=== PATIENT | female | born 1980 | race Caucasian/White ===

== ENCOUNTER 2020-10-24 17:23 | Emergency (ER) | payer OTHER ==
[~2020-10-24 17:23] MED LIST: ASCORBIC ACID500 MG PO; ASPIRIN CHEWABL81 MG PO; DICLOFENAC SODI75 MG PO; HUMALOG100 UNIT/1 SC; LASIX20 MG PO; METFORMIN HCL500 M1 PO; METOPROLOL SUCC25 MG PO; NAPROXEN500 MG PO; NORCO 5-325 TA1 EACH PO; OMEPRAZOLE 20MG20 MG PO; POTASSIUM CHLO10 ME2 PO; SIMVASTATIN40 MG PO; VALSARTAN160 MG PO; VITAMIN B-121000 MC1 PO; VITAMIN D35000 UNIT PO
[2020-10-24 19:43] LABS: BASOPHIL 0.5 % (0-2); EOSINOPHIL 1.1 % (0-5); HCT 38.6 % (37.0-47.0); HGB 12.6 g/dl (12.5-16.0); LYMPHOCYTE 21.3 % (15-48); MCH 27.8 pg (25.0-31.0); MCHC 32.6 g/dL (32.0-36.0); MCV 85.2 fL (78.0-100.0); MONOCYTE 6.5 % (0-12); MPV 9.6 fL (6.0-9.5); NEUTROPHIL 69.3 % (41-80); NRBC 0; PLT 422 K/uL (150-400); RBC 4.53 M/uL (4.20-5.40); RDW 12.7 % (11.5-14.0); WBC 12.9 K/uL (4.0-10.5)
[2020-10-24 20:01] LABS: ALBUMIN 3.6 g/dL (3.4-5.0); BILIRUBIN - TOTAL 0.3 mg/dL (0.2-1.0); BUN/CREAT RATIO (CALC) 19.7 RATIO; CREATININE 0.61 mg/dL (0.51-0.95); GLOBULIN (CALCULATION) 4.1 g/dL; TOTAL PROTEIN 7.7 g/dL (6.4-8.2)
[2020-10-24 20:15] LABS: BILIRUBIN NEGATIVE (NEGATIVE); BLOOD 3+ Ery/uL (NEGATIVE); CLARITY CLEAR (CLEAR); COLOR YELLOW (YELLOW); GLUCOSE (U) NORMAL (NORMAL); LEUKOCYTES NEGATIVE Leu/uL (NEGATIVE); NITRITE NEGATIVE (NEGATIVE); PROTEIN NEGATIVE (NEGATIVE); SPECIFIC GRAVITY 1.025 (1.001-1.030); UROBILINOGEN 0.2 mg/dL (0.2-1.0)
[2020-10-24 20:23] LABS: HCG (URINE) SCREEN NEGATIVE (NEGATIVE)
[2020-10-24 20:32] LABS: URINARY WBC RARE
[2020-10-24 20:33] LABS: BACTERIA TRACE; MUCOUS MODERATE
== END 2020-10-24 21:20 | disposition home or self-care (01) ==
LOC: FER 17:23
PROVIDERS: Nurse Practitioner
DX: N93.8 Other specified abnormal uterine and vaginal bleeding (principal); E11.9 Type 2 diabetes mellitus without complications; I10 Essential (primary) hypertension; Z98.890 Other specified postprocedural states
CPT/HCPCS: 36415; 80053; 81001; 84703; 85025; 99284